=== PATIENT | male | born 1970 | race Caucasian/White ===

== ENCOUNTER → 2017-01-14 | Outpatient (REF) | payer OTHER ==
[~2017-01-14] MED LIST: /MOM400 PO; ALLO300T2 PO; ALLO50TA PO; AUGM875T27 PO; BISAC5TA PO; LIPI20TA PO; METF500T PO; METO50TA2 PO; NICO14PA EXT; OMEP10CA PO; PERC7.5T12 PO; PRIL10PO PO; TYLE325T5 PO
[2017-01-14 18:14] LABS: ALBUMIN 4.7 GM/DL (3.2-5.2); ALBUMIN/GLOBULIN RATIO 1.52 (1.00-1.93); ALKALINE PHOSPHATASE 56 U/L (45-117); ALT/SGPT 54 U/L (12-78); ANION GAP 9 MEQ/L (8-16); AST/SGOT 33 U/L (15-37); BILIRUBIN,TOTAL 0.7 MG/DL (0.2-1.0); BLOOD UREA NITROGEN 11 MG/DL (7-18); CALCIUM LEVEL 9.1 MG/DL (8.5-10.1); CARBON DIOXIDE LEVEL 29 MEQ/L (21-32); CHLORIDE LEVEL 103 MEQ/L (98-107); CHOLESTEROL LEVEL 142 MG/DL (<200); CREATININE FOR GFR 1.14 MG/DL (0.70-1.30); FREE T4 0.96 NG/DL (0.76-1.46); GLOMERULAR FILTRATION RATE > 60.0 (>60); GLUCOSE, FASTING 96 MG/DL (70-105); POTASSIUM SERUM 4.2 MEQ/L (3.5-5.1); SODIUM LEVEL 141 MEQ/L (136-145); TOTAL PROTEIN 7.8 GM/DL (6.4-8.2); TRIGLYCERIDES LEVEL 217 MG/DL (<150)
[2017-01-14 18:16] LABS: VITAMIN B12 LEVEL 423 PG/ML (247-911)
[2017-01-14 18:50] LABS: BASO # 0.1 K/mm3 (0.0-0.2); BASO % 0.6 % (0.0-1.0); EOS # 0.2 K/mm3 (0.0-0.50); EOS % 2.2 % (0.0-3.0); LARGE UNSTAINED CELL # 0.2 K/mm3 (0.0-0.4); LARGE UNSTAINED CELL % 1.5 % (0.0-4.0); LYMPH # 2.6 K/mm3 (1.5-4.5); LYMPH % 25.4 % (24.0-44.0); MEAN CORPUSCULAR HEMOGLOBIN 33.8 pg (27.0-33.0); MEAN CORPUSCULAR HGB CONC 35.3 g/dl (32.0-36.5); MEAN CORPUSCULAR VOLUME 95.8 fl (80.0-96.0); MONO # 0.4 K/mm3 (0.0-0.8); MONO % 4.4 % (0.0-5.0); NEUTROPHILS # 6.3 K/mm3 (1.8-7.7); NEUTROPHILS % 65.9 % (36.0-66.0); PLATELET COUNT, AUTOMATED 199 k/mm3 (150-450); RED CELL DISTRIBUTION WIDTH 12.5 % (11.5-14.5); WHITE BLOOD COUNT 9.5 K/mm3 (4.0-10.0)
== END ==
LOC: M SFHCPLAZ 14:37
PROVIDERS: ATTEND Physician Assistant Medical
DX: I10 Essential (primary) hypertension (principal); E78.5 Hyperlipidemia, unspecified; E11.9 Type 2 diabetes mellitus without complications; G62.9 Polyneuropathy, unspecified

== ENCOUNTER 2017-08-01 03:59 | Emergency (ER) | payer OTHER ==
[~2017-08-01] VITALS: Ht 180.3 cm; Wt 119.0 kg
[2017-08-01] MEDS ORDERED: RAMI10CA PO (04:27)
[2017-08-01] MEDS ORDERED: IPRATROPIUM 0.5MG/ALBUTEROL 2.5MG INH SOL UD 3ML (DUONEB)(J7620) NEB ONE (07:15)
--- NOTE | 2017-08-01 07:51 | REP ---
Clinical: Chest pain. Technique: PA and lateral. Comparison: 01/06/2011. Findings: Mediastinum and cardiac silhouette are normal. Lung puckett demonstrate chronic stable changes without focal consolidation, effusion, or pneumothorax. Skeletal structures are intact. Impression: Chronic stable changes. No acute cardiopulmonary process. Signed by Rishabh Sanford MD 08/01/2017 07:43 A
[2017-08-01 07:52] LABS: BASO % 0.5 % (0.0-1.0); EOS # 0.2 K/mm3 (0.0-0.50); EOS % 2.7 % (0.0-3.0); LARGE UNSTAINED CELL # 0.2 K/mm3 (0.0-0.4); LARGE UNSTAINED CELL % 1.7 % (0.0-4.0); LYMPH # 2.2 K/mm3 (1.5-4.5); LYMPH % 23.8 % (24.0-44.0); MEAN CORPUSCULAR HGB CONC 36.4 g/dl (32.0-36.5); MEAN CORPUSCULAR VOLUME 93.5 fl (80.0-96.0); MONO # 0.6 K/mm3 (0.0-0.8); MONO % 5.9 % (0.0-5.0); NEUTROPHILS # 6.2 K/mm3 (1.8-7.7); NEUTROPHILS % 65.5 % (36.0-66.0); PLATELET COUNT, AUTOMATED 167 k/mm3 (150-450); RED CELL DISTRIBUTION WIDTH 12.3 % (11.5-14.5); WHITE BLOOD COUNT 9.4 K/mm3 (4.0-10.0)
[2017-08-01 08:06] LABS: ALBUMIN/GLOBULIN RATIO 1.14 (1.00-1.93); ALKALINE PHOSPHATASE 60 U/L (45-117); ALT/SGPT 44 U/L (12-78); ANION GAP 10 MEQ/L (8-16); AST/SGOT 19 U/L (15-37); BILIRUBIN,TOTAL 0.6 MG/DL (0.2-1.0); BLOOD UREA NITROGEN 13 MG/DL (7-18); CALCIUM LEVEL 8.9 MG/DL (8.5-10.1); CARBON DIOXIDE LEVEL 25 MEQ/L (21-32); CHLORIDE LEVEL 106 MEQ/L (98-107); CREATININE FOR GFR 0.91 MG/DL (0.70-1.30); GLOMERULAR FILTRATION RATE > 60.0 (>60); GLUCOSE, FASTING 105 MG/DL (70-105); POTASSIUM SERUM 4.1 MEQ/L (3.5-5.1); SODIUM LEVEL 141 MEQ/L (136-145); TOTAL PROTEIN 7.5 GM/DL (6.4-8.2)
[2017-08-01] MEDS ORDERED: ERYT5OPO OD (08:28)
[2017-08-01] MEDS ORDERED: PRED20TA PO (08:28)
[2017-08-01] MEDS ORDERED: PROAAER10 INH (08:28)
[2017-08-01] MEDS ORDERED: ZITHTAB PO (08:28)
[2017-08-01] MEDS ORDERED: AZIT-12 PO (08:42)
[2017-08-01] MEDS ORDERED: AZITHROMYCIN 250 MG TAB PO ONE (08:45)
[2017-08-01] MEDS ORDERED: ALBUTEROL 90 MCG/ACT 8GM HFA INHALER INH ONE (08:45)
[2017-08-01 09:02] VITALS: BP 154/84
== END 2017-08-01 09:03 | disposition home or self-care (01) ==
LOC: M ED 03:59
DX: B34.9 Viral infection, unspecified (principal); J44.1 Chronic obstructive pulmonary disease with (acute) exacerbation; H10.9 Unspecified conjunctivitis; F17.210 Nicotine dependence, cigarettes, uncomplicated; I10 Essential (primary) hypertension; E78.00 Pure hypercholesterolemia, unspecified; Z79.899 Other long term (current) drug therapy

== ENCOUNTER → 2018-01-06 | Outpatient (REF) | payer OTHER ==
[2018-01-06 13:50] LABS: BASO % 0.7 % (0.0-1.0); EOS # 0.1 10^3/uL (0.0-0.50); EOS % 2.2 % (0.0-3.0); HEMATOCRIT 45.2 % (42.0-52.0); HEMOGLOBIN 16.5 g/dl (14.0-18.0); IMMATURE GRANULOCYTE % 0.5 % (0-3.0); LYMPH % 32.9 % (24.0-44.0); MEAN CORPUSCULAR HEMOGLOBIN 31.9 pg (27.0-33.0); MEAN CORPUSCULAR HGB CONC 36.5 g/dl (32.0-36.5); MEAN CORPUSCULAR VOLUME 87.3 fl (80.0-96.0); MONO # 0.4 10^3/uL (0.0-0.8); MONO % 6.7 % (0.0-5.0); NEUTROPHILS # 3.4 10^3/uL (1.8-7.7); PLATELET COUNT, AUTOMATED 193 10^3/uL (150-450); RED BLOOD COUNT 5.18 10^6/uL (4.30-6.10); RED CELL DISTRIBUTION WIDTH 11.9 % (11.5-14.5)
[2018-01-06 13:58] LABS: ALBUMIN 4.5 GM/DL (3.2-5.2); ALBUMIN/GLOBULIN RATIO 1.41 (1.00-1.93); ALKALINE PHOSPHATASE 72 U/L (45-117); ALT/SGPT 70 U/L (12-78); ANION GAP 9 MEQ/L (8-16); AST/SGOT 41 U/L (7-37); BLOOD UREA NITROGEN 14 MG/DL (7-18); CALCIUM LEVEL 9.2 MG/DL (8.5-10.1); CARBON DIOXIDE LEVEL 25 MEQ/L (21-32); CHLORIDE LEVEL 101 MEQ/L (98-107); CHOLESTEROL LEVEL 139 MG/DL (<200); CHOLESTEROL RISK RATIO 4.212 (<5); CPK CREATINE PHOSPHOKINASE 169 U/L (39-308); CREATININE FOR GFR 0.95 MG/DL (0.70-1.30); GLOMERULAR FILTRATION RATE > 60.0 (>60); GLUCOSE, FASTING 299 MG/DL (70-100); HDL CHOLESTEROL 33 MG/DL (>40); NON-HDL-C 106 MG/DL; POTASSIUM SERUM 4.2 MEQ/L (3.5-5.1); SODIUM LEVEL 135 MEQ/L (136-145); TOTAL PROTEIN 7.7 GM/DL (6.4-8.2); TRIGLYCERIDES LEVEL 225 MG/DL (<150)
[2018-01-06 14:05] LABS: VITAMIN B12 LEVEL 568 PG/ML (247-911)
[2018-01-06 14:15] LABS: ESTIMATED AVERAGE GLUCOSE 237 MG/DL (60-110); HEMOGLOBIN A1c 9.9 %
[2018-01-06 14:49] LABS: MALB URINE SIEMENS 29.4 MG/L; MAU/CREAT RATIO 10.1 MCG/MG (0.0-30.0)
== END ==
LOC: M SFHCPLAZ 11:41
DX: E11.9 Type 2 diabetes mellitus without complications (principal); E78.5 Hyperlipidemia, unspecified; I10 Essential (primary) hypertension; G62.9 Polyneuropathy, unspecified

== ENCOUNTER → 2018-02-04 | Outpatient (REF) | payer OTHER ==
[2018-02-04 13:22] LABS: ESTIMATED AVERAGE GLUCOSE 169 MG/DL (60-110); HEMOGLOBIN A1c 7.5 %
== END ==
LOC: M SFHCPLAZ 08:50
DX: E11.9 Type 2 diabetes mellitus without complications (principal)
CPT/HCPCS: 83036

== ENCOUNTER → 2018-07-07 | Outpatient (REF) | payer OTHER ==
[2018-07-07 13:54] LABS: URIC ACID 5.2 MG/DL (3.5-7.2)
[2018-07-07 14:36] LABS: ESTIMATED AVERAGE GLUCOSE 114 MG/DL (60-110); HEMOGLOBIN A1c 5.6 %
== END ==
LOC: M SFHCPLAZ 11:37
DX: M10.9 Gout, unspecified (principal); E11.9 Type 2 diabetes mellitus without complications

== ENCOUNTER → 2019-01-05 | Outpatient (REF) | payer OTHER ==
[~2019-01-05] MED LIST changes: +AZIT-12 PO; +ERYT5OPO OD; +PRED20TA PO; +PROAAER10 INH; +RAMI1CAP26 PO; +ZITHTAB PO
[2019-01-05 11:56] LABS: BASO # 0.1 10^3/uL (0.0-0.2); BASO % 0.9 % (0.0-1.0); EOS # 0.2 10^3/uL (0.0-0.50); EOS % 2.7 % (0.0-3.0); HEMATOCRIT 44.9 % (42.0-52.0); LYMPH # 2.2 10^3/uL (1.5-4.5); LYMPH % 32.2 % (24.0-44.0); MEAN CORPUSCULAR HEMOGLOBIN 32.5 pg (27.0-33.0); MEAN CORPUSCULAR HGB CONC 35.6 g/dl (32.0-36.5); MEAN CORPUSCULAR VOLUME 91.3 fl (80.0-96.0); MONO # 0.5 10^3/uL (0.0-0.8); MONO % 7.7 % (0.0-5.0); NEUTROPHILS # 3.9 10^3/uL (1.8-7.7); NEUTROPHILS % 55.6 % (36.0-66.0); PLATELET COUNT, AUTOMATED 180 10^3/uL (150-450); RED BLOOD COUNT 4.92 10^6/uL (4.30-6.10); WHITE BLOOD COUNT 6.9 10^3/uL (4.0-10.0)
[2019-01-05 12:08] LABS: HEMOGLOBIN A1c 7.7 %
[2019-01-05 12:10] LABS: ALBUMIN 4.5 GM/DL (3.2-5.2); ALT/SGPT 70 U/L (12-78); BILIRUBIN,TOTAL 0.8 MG/DL (0.2-1.0); BLOOD UREA NITROGEN 15 MG/DL (7-18); CALCIUM LEVEL 9.1 MG/DL (8.5-10.1); CARBON DIOXIDE LEVEL 25 MEQ/L (21-32); CHLORIDE LEVEL 102 MEQ/L (98-107); CHOLESTEROL LEVEL 137 MG/DL (<200); CHOLESTEROL RISK RATIO 4.419 (<5); CPK CREATINE PHOSPHOKINASE 107 U/L (39-308); CREATININE FOR GFR 0.94 MG/DL (0.70-1.30); GLOMERULAR FILTRATION RATE > 60.0 (>56); GLUCOSE, FASTING 198 MG/DL (70-100); HDL CHOLESTEROL 31 MG/DL (>40); LDL CHOLESTEROL 58 MG/DL (<100); NON-HDL-C 106 MG/DL; POTASSIUM SERUM 4.4 MEQ/L (3.5-5.1); SODIUM LEVEL 136 MEQ/L (136-145); TOTAL PROTEIN 7.5 GM/DL (6.4-8.2); TRIGLYCERIDES LEVEL 240 MG/DL (<150); URIC ACID 4.3 MG/DL (3.5-7.2)
[2019-01-05 12:13] LABS: MALB URINE SIEMENS 34.5 MG/L
== END ==
LOC: M SFHCPLAZ 08:46
PROVIDERS: ATTEND Physician Assistant Medical
DX: Z12.5 Encounter for screening for malignant neoplasm of prostate (principal); I10 Essential (primary) hypertension; E11.9 Type 2 diabetes mellitus without complications; E78.5 Hyperlipidemia, unspecified; M10.9 Gout, unspecified

== ENCOUNTER 2020-03-01 09:11 | Emergency (ER) | payer OTHER ==
[~2020-03-01] VITALS: Ht 180.3 cm; Wt 106.4 kg
[~2020-03-01 09:11] MED LIST changes: -/MOM400 PO; +ERYT1OIN26 OD; -ERYT5OPO OD; +MILK10SU PO; +NICO14DI20 EXT; -NICO14PA EXT
[2020-03-01] MEDS ORDERED: METF10004 (09:21)
[2020-03-01] MEDS ORDERED: PRAV40TA2 (09:21)
[2020-03-01] MEDS ORDERED: LISI-542 (09:21)
[2020-03-01] MEDS ORDERED: OMEP-218 (09:21)
[2020-03-01] MEDS ORDERED: AMLO5TAB6 (09:21)
[2020-03-01] MEDS ORDERED: MECLIZINE 25 MG TABLET PO ONE (10:00)
[2020-03-01 10:14] LABS: BASO % 0.5 % (0.0-1.0); EOS # 0.1 10^3/uL (0.0-0.5); EOS % 1.5 % (0.0-3.0); HEMATOCRIT 44.7 % (42.0-52.0); HEMOGLOBIN 15.8 g/dl (13.5-17.5); LYMPH # 1.6 10^3/uL (1.5-5.0); MEAN CORPUSCULAR HEMOGLOBIN 31.6 pg (27.0-33.0); MEAN CORPUSCULAR HGB CONC 35.3 g/dl (32.0-36.5); MEAN CORPUSCULAR VOLUME 89.4 fl (80.0-96.0); MONO # 0.5 10^3/uL (0.0-0.8); MONO % 5.7 % (0.0-5.0); NEUTROPHILS # 6.1 10^3/uL (1.5-8.5); NEUTROPHILS % 72.6 % (36.0-66.0); PLATELET COUNT, AUTOMATED 193 10^3/uL (150-450); WHITE BLOOD COUNT 8.4 10^3/uL (4.0-10.0)
[2020-03-01 10:41] LABS: BLOOD UREA NITROGEN 11 MG/DL (7-18); CALCIUM LEVEL 9.4 MG/DL (8.5-10.1); CARBON DIOXIDE LEVEL 28 MEQ/L (21-32); CHLORIDE LEVEL 101 MEQ/L (98-107); CK-MB VALUE MASS 2.4 NG/ML (<3.6); CPK CREATINE PHOSPHOKINASE 64 U/L (39-308); CREATININE FOR GFR 0.85 MG/DL (0.70-1.30); GLOMERULAR FILTRATION RATE > 60.0 (>56); GLUCOSE, FASTING 334 MG/DL (70-100); MB/CK RELATIVE INDEX 3.75 (< OR =4); SODIUM LEVEL 136 MEQ/L (136-145); THYROID STIMULATING HORMONE 0.855 uIU/ML (0.358-3.740); TROPONIN I < 0.02 NG/ML (< 0.10)
[2020-03-01] MEDS ORDERED: MECL-86 PO (10:52)
--- NOTE | 2020-03-01 10:52 | REP ---
CT BRAIN WITHOUT CONTRAST: HISTORY: Dizziness. Comparison is made with images from maxillofacial CT study dated December 17, 2013. FINDINGS: Preliminary digital channeler insole radiograph is unremarkable. On bone window settings, the bony calvarium is intact. There is a linear area of fibrosis in the left frontal scalp. On soft tissue window settings, the lateral, third, and fourth ventricles are normal in size and position. Mccauley-white differentiation pattern is normal above below the tentorium. There is no evidence of intracranial hemorrhage. No mass, infarct, extra-axial fluid collection, or midline shift is seen. IMPRESSION: Negative noncontrast brain CT. Electronically Signed by Olegario Samano MD 03/01/2020 11:42 A
[2020-03-01 11:15] VITALS: BP 157/90
--- NOTE | 2020-03-02 12:24 | ECGEPIP ---
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
== END 2020-03-01 11:34 | disposition home or self-care (01) ==
LOC: M ED 09:11
DX: H81.10 Benign paroxysmal vertigo, unspecified ear (principal); E11.9 Type 2 diabetes mellitus without complications; I10 Essential (primary) hypertension; E78.5 Hyperlipidemia, unspecified; M10.9 Gout, unspecified; Z79.899 Other long term (current) drug therapy; Z79.84 Long term (current) use of oral hypoglycemic drugs; F17.210 Nicotine dependence, cigarettes, uncomplicated

== ENCOUNTER → 2020-09-10 | Outpatient (REF) | payer OTHER ==
[~2020-09-10] MED LIST changes: +AMLO1TAB24; -ERYT1OIN26 OD; +ERYT5OIN25 OD; +LISI-542; +MECL-86 PO; +METF10004; +OMEP-218; +PRAV40TA2
[2020-09-10 10:46] LABS: BASO # 0.1 10^3/uL (0.0-0.2); EOS # 0.1 10^3/uL (0.0-0.5); EOS % 1.3 % (0.0-3.0); HEMATOCRIT 48.8 % (42.0-52.0); HEMOGLOBIN 16.9 g/dl (13.5-17.5); LYMPH # 2.4 10^3/uL (1.5-5.0); LYMPH % 28.8 % (24.0-44.0); MEAN CORPUSCULAR HEMOGLOBIN 31.4 pg (27.0-33.0); MEAN CORPUSCULAR HGB CONC 34.6 g/dl (32.0-36.5); MEAN CORPUSCULAR VOLUME 90.5 fl (80.0-96.0); MONO # 0.5 10^3/uL (0.0-0.8); MONO % 5.7 % (0.0-5.0); NEUTROPHILS # 5.2 10^3/uL (1.5-8.5); NEUTROPHILS % 62.4 % (36.0-66.0); PLATELET COUNT, AUTOMATED 222 10^3/uL (150-450); RED BLOOD COUNT 5.39 10^6/uL (4.30-6.10); WHITE BLOOD COUNT 8.3 10^3/uL (4.0-10.0)
[2020-09-10 11:20] LABS: ALBUMIN 4.3 GM/DL (3.2-5.2); ALT/SGPT 38 U/L (12-78); BILIRUBIN,TOTAL 0.6 MG/DL (0.2-1.0); BLOOD UREA NITROGEN 13 MG/DL (7-18); CALCIUM LEVEL 9.5 MG/DL (8.5-10.1); CARBON DIOXIDE LEVEL 30 MEQ/L (21-32); CHLORIDE LEVEL 101 MEQ/L (98-107); CHOLESTEROL LEVEL 142 MG/DL (<200); CHOLESTEROL RISK RATIO 4.303 (<5); CPK CREATINE PHOSPHOKINASE 45 U/L (39-308); GLOMERULAR FILTRATION RATE > 60.0 (>56); GLUCOSE, FASTING 252 MG/DL (70-100); HDL CHOLESTEROL 33 MG/DL (>40); LDL CHOLESTEROL 50 MG/DL (<100); NON-HDL-C 109 MG/DL; POTASSIUM SERUM 4.6 MEQ/L (3.5-5.1); SODIUM LEVEL 137 MEQ/L (136-145); TOTAL PROTEIN 7.8 GM/DL (6.4-8.2); TRIGLYCERIDES LEVEL 296 MG/DL (<150)
[2020-09-10 11:43] LABS: HEMOGLOBIN A1c 9.1 %
== END ==
LOC: M SFHCPLAZ 08:21
PROVIDERS: ATTEND Physician Assistant Medical
DX: I10 Essential (primary) hypertension (principal); E78.5 Hyperlipidemia, unspecified; E11.9 Type 2 diabetes mellitus without complications; Z12.5 Encounter for screening for malignant neoplasm of prostate

== ENCOUNTER → 2021-01-11 | Outpatient (REF) | payer OTHER ==
[~2021-01-11] MED LIST changes: -LISI-542; +LISI-898
[2021-01-11 10:13] LABS: BASO # 0.1 10^3/uL (0.0-0.2); BASO % 0.7 % (0.0-1.0); EOS # 0.1 10^3/uL (0.0-0.5); EOS % 1.3 % (0.0-3.0); HEMATOCRIT 44.4 % (42.0-52.0); HEMOGLOBIN 15.8 g/dl (13.5-17.5); LYMPH # 2.2 10^3/uL (1.5-5.0); LYMPH % 29.3 % (24.0-44.0); MEAN CORPUSCULAR HEMOGLOBIN 31.7 pg (27.0-33.0); MEAN CORPUSCULAR HGB CONC 35.6 g/dl (32.0-36.5); MONO # 0.4 10^3/uL (0.0-0.8); MONO % 5.8 % (2.0-8.0); NEUTROPHILS # 4.8 10^3/uL (1.5-8.5); NEUTROPHILS % 62.1 % (36.0-66.0); PLATELET COUNT, AUTOMATED 187 10^3/uL (150-450); RED BLOOD COUNT 4.99 10^6/uL (4.30-6.10); WHITE BLOOD COUNT 7.7 10^3/uL (4.0-10.0)
[2021-01-11 10:49] LABS: ALBUMIN 4.3 GM/DL (3.2-5.2); ALT/SGPT 34 U/L (12-78); BILIRUBIN,TOTAL 0.7 MG/DL (0.2-1.0); BLOOD UREA NITROGEN 10 MG/DL (7-18); CALCIUM LEVEL 9.6 MG/DL (8.5-10.1); CARBON DIOXIDE LEVEL 28 MEQ/L (21-32); CHLORIDE LEVEL 100 MEQ/L (98-107); CHOLESTEROL LEVEL 158 MG/DL (<200); CHOLESTEROL RISK RATIO 4.937 (<5); CREATININE FOR GFR 0.97 MG/DL (0.70-1.30); FREE T4 1.07 NG/DL (0.76-1.46); GLOMERULAR FILTRATION RATE > 60.0 (>56); GLUCOSE, FASTING 268 MG/DL (70-100); HDL CHOLESTEROL 32 MG/DL (>40); LDL CHOLESTEROL 69 MG/DL (<100); NON-HDL-C 126 MG/DL; POTASSIUM SERUM 4.9 MEQ/L (3.5-5.1); SODIUM LEVEL 136 MEQ/L (136-145); TOTAL PROTEIN 7.6 GM/DL (6.4-8.2); TRIGLYCERIDES LEVEL 285 MG/DL (<150)
[2021-01-11 10:50] LABS: LUTEINIZING HORMONE 4.2 mIU/mL (1.5-9.3); PROLACTIN 2.8 NG/ML (2.1-17.7)
[2021-01-11 10:51] LABS: FOLLICLE STIMULATING HORMONE 5.4 mIU/mL (1.4-18.1)
[2021-01-11 10:56] LABS: MALB URINE SIEMENS 10.1 MG/L; MAU/CREAT RATIO 5.8 MCG/MG (0.0-30.0)
[2021-01-11 11:20] LABS: HEMOGLOBIN A1c 10.1 %
[2021-01-12 19:16] LABS: TESTOSTERONE FREE (DIRECT) 9.6 pg/mL (7.2-24.0)
== END ==
LOC: M SFHCPLAZ 08:22
PROVIDERS: ATTEND Physician Assistant Medical
DX: E11.9 Type 2 diabetes mellitus without complications (principal); E78.5 Hyperlipidemia, unspecified; I10 Essential (primary) hypertension; N52.9 Male erectile dysfunction, unspecified

== ENCOUNTER → 2021-06-04 | Outpatient (CLI) | payer OTHER ==
[~2021-06-04] MED LIST changes: -LISI-898; +LISI5TAB11; +OMEP-173; -OMEP-218
[2021-06-04 15:36] LABS: BASO # 0.1 10^3/uL (0.0-0.2); BASO % 0.9 % (0.0-1.0); EOS # 0.2 10^3/uL (0.0-0.5); EOS % 2.4 % (0.0-3.0); HEMATOCRIT 46.5 % (42.0-52.0); HEMOGLOBIN 16.5 g/dl (13.5-17.5); LYMPH # 3.2 10^3/uL (1.5-5.0); LYMPH % 33.2 % (24.0-44.0); MEAN CORPUSCULAR HGB CONC 35.5 g/dl (32.0-36.5); MEAN CORPUSCULAR VOLUME 90.3 fl (80.0-96.0); MONO # 0.6 10^3/uL (0.0-0.8); MONO % 6.6 % (2.0-8.0); NEUTROPHILS # 5.5 10^3/uL (1.5-8.5); NEUTROPHILS % 56.1 % (36.0-66.0); PLATELET COUNT, AUTOMATED 214 10^3/uL (150-450); RED BLOOD COUNT 5.15 10^6/uL (4.30-6.10); WHITE BLOOD COUNT 9.7 10^3/uL (4.0-10.0)
[2021-06-04 16:05] LABS: ALBUMIN 4.4 GM/DL (3.2-5.2); ALT/SGPT 36 U/L (12-78); BILIRUBIN,TOTAL 0.7 MG/DL (0.2-1.0); BLOOD UREA NITROGEN 13 MG/DL (7-18); CALCIUM LEVEL 9.3 MG/DL (8.5-10.1); CARBON DIOXIDE LEVEL 25 MEQ/L (21-32); CHLORIDE LEVEL 105 MEQ/L (98-107); CHOLESTEROL LEVEL 146 MG/DL (<200); CHOLESTEROL RISK RATIO 4.294 (<5); CREATININE FOR GFR 0.87 MG/DL (0.70-1.30); FREE T4 0.95 NG/DL (0.76-1.46); GLOMERULAR FILTRATION RATE > 60.0 (>56); GLUCOSE, FASTING 122 MG/DL (70-100); HDL CHOLESTEROL 34 MG/DL (>40); LDL CHOLESTEROL 52 MG/DL (<100); NON-HDL-C 112 MG/DL; POTASSIUM SERUM 4.4 MEQ/L (3.5-5.1); SODIUM LEVEL 137 MEQ/L (136-145); TOTAL PROTEIN 7.8 GM/DL (6.4-8.2); TRIGLYCERIDES LEVEL 302 MG/DL (<150)
[2021-06-04 17:21] LABS: HEMOGLOBIN A1c 6.1 %
[2021-06-06 20:34] LABS: TESTOSTERONE FREE (DIRECT) 14.7 pg/mL (7.2-24.0)
== END ==
LOC: M PLALAB 12:37
PROVIDERS: ATTEND Physician Assistant Medical
DX: N52.9 Male erectile dysfunction, unspecified (principal); E78.5 Hyperlipidemia, unspecified; E11.9 Type 2 diabetes mellitus without complications; I10 Essential (primary) hypertension

== ENCOUNTER → 2023-02-02 | Outpatient (CLI) | payer BC ==
[2023-02-02 14:10] LABS: HEMOGLOBIN A1c 6.7 % (4.0-6.0)
[2023-02-02 14:12] LABS: URIC ACID 4.4 MG/DL (3.7-9.2)
[2023-02-02 14:15] LABS: ALBUMIN 4.5 G/DL (3.2-5.2); ALKALINE PHOSPHATASE 54 U/L (46-116); ALT/SGPT 26 U/L (7.0-40); AST/SGOT 16 U/L (<34); BILIRUBIN,TOTAL 0.6 MG/DL (0.3-1.2); BLOOD UREA NITROGEN 14 MG/DL (9-23); CALCIUM LEVEL 9.7 MG/DL (8.5-10.1); CARBON DIOXIDE LEVEL 28 MMOL/L (20-31); CHLORIDE LEVEL 104 MMOL/L (98-107); CHOLESTEROL LEVEL 143 MG/DL (<200); CHOLESTEROL RISK RATIO 4.18 (<5); CREATININE FOR GFR 0.75 MG/DL (0.70-1.30); GLOMERULAR FILTRATION RATE > 60.0 (>56); GLUCOSE, FASTING 174 MG/DL (60-100); HDL CHOLESTEROL 34.2 MG/DL (>40); LDL CHOLESTEROL 44.8 MG/DL (<100); NON-HDL-C 108.8 MG/DL; POTASSIUM SERUM 4.9 MMOL/L (3.5-5.1); SODIUM LEVEL 140 MMOL/L (136-145); TOTAL PROTEIN 7.5 G/DL (5.7-8.2); TRIGLYCERIDES LEVEL 320 MG/DL (<150)
[2023-02-02 14:27] LABS: BASO # 0.1 10^3/uL (0.0-0.2); BASO % 0.8 % (0.0-1.0); EOS # 0.2 10^3/uL (0.0-0.5); EOS % 2.1 % (0.0-3.0); HEMATOCRIT 47.9 % (42.0-52.0); HEMOGLOBIN 16.5 g/dl (13.5-17.5); LYMPH # 2.6 10^3/uL (1.5-5.0); LYMPH % 28.7 % (24.0-44.0); MEAN CORPUSCULAR HEMOGLOBIN 32.4 pg (27.0-33.0); MEAN CORPUSCULAR HGB CONC 34.4 g/dl (32.0-36.5); MEAN CORPUSCULAR VOLUME 94.1 fl (80.0-96.0); MONO # 0.6 10^3/uL (0.0-0.8); MONO % 6.2 % (2.0-8.0); NEUTROPHILS # 5.5 10^3/uL (1.5-8.5); NEUTROPHILS % 61.6 % (36.0-66.0); PLATELET COUNT, AUTOMATED 229 10^3/uL (150-450); RED BLOOD COUNT 5.09 10^6/uL (4.30-6.10); WHITE BLOOD COUNT 8.9 10^3/uL (4.0-10.0)
== END ==
LOC: M PLALAB 09:51
PROVIDERS: ATTEND Physician Assistant Medical
DX: M10.9 Gout, unspecified (principal)

== ENCOUNTER → 2023-08-13 | Outpatient (CLI) | payer BC ==
[2023-08-13 15:56] LABS: BASO # 0.1 10^3/uL (0.0-0.2); BASO % 0.6 % (0.0-1.0); EOS # 0.2 10^3/uL (0.0-0.5); EOS % 1.7 % (0.0-3.0); HEMOGLOBIN 14.6 g/dl (13.5-17.5); LYMPH # 2.5 10^3/uL (1.5-5.0); LYMPH % 23.9 % (24.0-44.0); MEAN CORPUSCULAR HGB CONC 35.6 g/dl (32.0-36.5); MEAN CORPUSCULAR VOLUME 89.9 fl (80.0-96.0); MONO # 0.7 10^3/uL (0.0-0.8); MONO % 6.3 % (2.0-8.0); NEUTROPHILS # 7.1 10^3/uL (1.5-8.5); PLATELET COUNT, AUTOMATED 234 10^3/uL (150-450); RED BLOOD COUNT 4.56 10^6/uL (4.30-6.10); WHITE BLOOD COUNT 10.6 10^3/uL (4.0-10.0)
[2023-08-13 16:20] LABS: CREATININE, URINE > 735.0 MG/DL
[2023-08-13 16:21] LABS: ALBUMIN 4.4 G/DL (3.2-5.2); ALKALINE PHOSPHATASE 54 U/L (46-116); ALT/SGPT 35 U/L (7.0-40); AST/SGOT 28 U/L (<34); BILIRUBIN,TOTAL 0.8 MG/DL (0.3-1.2); BLOOD UREA NITROGEN 12 MG/DL (9-23); CALCIUM LEVEL 9.5 MG/DL (8.5-10.1); CARBON DIOXIDE LEVEL 28 MMOL/L (20-31); CHLORIDE LEVEL 103 MMOL/L (98-107); CREATININE FOR GFR 1.05 MG/DL (0.70-1.30); GLOMERULAR FILTRATION RATE > 60.0 (>56); GLUCOSE, FASTING 134 MG/DL (60-100); POTASSIUM SERUM 4.6 MMOL/L (3.5-5.1); SODIUM LEVEL 139 MMOL/L (136-145); TOTAL PROTEIN 7.2 G/DL (5.7-8.2)
[2023-08-13 17:28] LABS: HEMOGLOBIN A1c 8.1 % (4.0-6.0)
== END ==
LOC: M PLALAB 13:33
PROVIDERS: ATTEND Physician Assistant Medical
DX: K21.9 Gastro-esophageal reflux disease without esophagitis (principal); I10 Essential (primary) hypertension; E78.5 Hyperlipidemia, unspecified; M10.9 Gout, unspecified; E11.9 Type 2 diabetes mellitus without complications

== ENCOUNTER → 2024-02-17 | Outpatient (CLI) | payer SELFPAY ==
[2024-02-17 11:11] LABS: BASO # 0.1 10^3/uL (0.0-0.2); BASO % 0.8 % (0.0-1.0); EOS # 0.2 10^3/uL (0.0-0.5); EOS % 2.5 % (0.0-3.0); HEMATOCRIT 40.8 % (42.0-52.0); HEMOGLOBIN 14.6 g/dl (13.5-17.5); LYMPH # 2.2 10^3/uL (1.5-5.0); LYMPH % 27.6 % (24.0-44.0); MEAN CORPUSCULAR HEMOGLOBIN 32.4 pg (27.0-33.0); MEAN CORPUSCULAR HGB CONC 35.8 g/dl (32.0-36.5); MEAN CORPUSCULAR VOLUME 90.7 fl (80.0-96.0); MONO # 0.5 10^3/uL (0.0-0.8); NEUTROPHILS % 62.6 % (36.0-66.0); PLATELET COUNT, AUTOMATED 192 10^3/uL (150-450); WHITE BLOOD COUNT 7.9 10^3/uL (4.0-10.0)
[2024-02-17 11:12] LABS: URIC ACID 5.2 MG/DL (3.7-9.2)
[2024-02-17 11:13] LABS: PSA SCREENING 1.28 NG/ML (< 4.00)
[2024-02-17 11:15] LABS: ALBUMIN 4.3 G/DL (3.2-5.2); ALKALINE PHOSPHATASE 50 U/L (46-116); ALT/SGPT 21 U/L (7.0-40); AST/SGOT 16 U/L (<34); BILIRUBIN,TOTAL 0.6 MG/DL (0.3-1.2); BLOOD UREA NITROGEN 12 MG/DL (9-23); CALCIUM LEVEL 9.6 MG/DL (8.5-10.1); CARBON DIOXIDE LEVEL 27 MMOL/L (20-31); CHLORIDE LEVEL 109 MMOL/L (98-107); CHOLESTEROL LEVEL 106 MG/DL (<200); CHOLESTEROL RISK RATIO 3.69 (<5); CPK CREATINE PHOSPHOKINASE 90 U/L (46-171); GLOMERULAR FILTRATION RATE > 60.0 (>56); GLUCOSE, FASTING 117 MG/DL (60-100); HDL CHOLESTEROL 28.7 MG/DL (>40); LDL CHOLESTEROL 58.1 MG/DL (<100); NON-HDL-C 77.3 MG/DL; POTASSIUM SERUM 4.6 MMOL/L (3.5-5.1); SODIUM LEVEL 141 MMOL/L (136-145); TRIGLYCERIDES LEVEL 96 MG/DL (<150)
[2024-02-17 11:17] LABS: FREE T4 1.14 NG/DL (0.89-1.76); THYROID STIMULATING HORMONE 1.936 uIU/ML (0.55-4.78)
[2024-02-17 11:31] LABS: CREATININE, URINE 90.8 MG/DL
[2024-02-17 11:44] LABS: HEMOGLOBIN A1c 6.2 % (4.0-6.0)
[2024-02-18 11:08] LABS: TESTOSTERONE FREE (DIRECT) 6.6 pg/mL (7.2-24.0)
== END ==
LOC: M PLALAB 08:09
PROVIDERS: ATTEND Physician Assistant Medical
DX: E11.9 Type 2 diabetes mellitus without complications (principal); E78.5 Hyperlipidemia, unspecified; I10 Essential (primary) hypertension; M10.9 Gout, unspecified; Z12.5 Encounter for screening for malignant neoplasm of prostate; N52.9 Male erectile dysfunction, unspecified
CPT/HCPCS: 36415; 80053; 80061; 82043; 82550; 83036; 84402; 84403; 84439; 84443; 84550; 85025; G0103

== ENCOUNTER 2024-04-30 10:15 | Emergency (ER) | payer SELFPAY ==
[~2024-04-30] VITALS: Ht 180.3 cm; Wt 107.7 kg
[~2024-04-30 10:15] MED LIST changes: +RAMI10CA64 PO; -RAMI1CAP26 PO
[2024-04-30 12:13] LABS: BASO # 0.1 10^3/uL (0.0-0.2); BASO % 0.7 % (0.0-1.0); EOS # 0.2 10^3/uL (0.0-0.5); EOS % 2.6 % (0.0-3.0); HEMATOCRIT 40.6 % (42.0-52.0); HEMOGLOBIN 14.7 g/dl (13.5-17.5); LYMPH # 1.5 10^3/uL (1.5-5.0); LYMPH % 20.7 % (24.0-44.0); MEAN CORPUSCULAR HEMOGLOBIN 32.4 pg (27.0-33.0); MEAN CORPUSCULAR HGB CONC 36.2 g/dl (32.0-36.5); MEAN CORPUSCULAR VOLUME 89.4 fl (80.0-96.0); MONO # 0.5 10^3/uL (0.0-0.8); MONO % 6.7 % (2.0-8.0); NEUTROPHILS % 68.8 % (36.0-66.0); PLATELET COUNT, AUTOMATED 162 10^3/uL (150-450); RED BLOOD COUNT 4.54 10^6/uL (4.30-6.10); WHITE BLOOD COUNT 7.3 10^3/uL (4.0-10.0)
[2024-04-30 12:24] LABS: BLOOD UREA NITROGEN 16 MG/DL (9-23); CARBON DIOXIDE LEVEL 24 MMOL/L (20-31); CHLORIDE LEVEL 107 MMOL/L (98-107); CHOLESTEROL LEVEL 160 MG/DL (<200); CHOLESTEROL RISK RATIO 5.73 (<5); CREATININE FOR GFR 0.71 MG/DL (0.70-1.30); GLOMERULAR FILTRATION RATE > 60.0 (>56); GLUCOSE, FASTING 184 MG/DL (60-100); HDL CHOLESTEROL 27.9 MG/DL (>40); LDL CHOLESTEROL 58.1 MG/DL (<100); NON-HDL-C 132.1 MG/DL; SODIUM LEVEL 139 MMOL/L (136-145); TRIGLYCERIDES LEVEL 370 MG/DL (<150)
[2024-04-30 12:26] LABS: CPK CREATINE PHOSPHOKINASE 129 U/L (46-171); MB/CK RELATIVE INDEX 1.55 (< OR =4)
[2024-04-30] MEDS ORDERED: ISOVUE-370 76% 100ML VIAL As Ordered ONE (12:32)
[2024-04-30 13:25] LABS: LIPASE 29 U/L (12-53)
[2024-04-30 13:29] LABS: CPK CREATINE PHOSPHOKINASE 117 U/L (46-171)
[2024-04-30 14:16] LABS: INR 1.04; PARTIAL THROMBOPLASTIN TIME 26.8 SECONDS (24.8-34.2); PROTHROMBIN TIME 13.3 SECONDS (12.5-14.5)
[2024-04-30 15:00] VITALS: BP 150/83
[2024-04-30] MEDS: PANTOPRAZOLE 40MG VIAL IV ONE (15:02)
[2024-04-30 15:11] LABS: MB/CK RELATIVE INDEX 1.85 (< OR =4)
[2024-04-30] MEDS ORDERED: OMEP40CA4 PO (15:16)
[2024-04-30 15:30] VITALS: O2SAT 97
[2024-04-30 16:07] VITALS: TEMP 98.7
== END 2024-04-30 16:09 | disposition home or self-care (01) ==
LOC: M ED 10:15
DX: R07.9 Chest pain, unspecified (principal); E11.9 Type 2 diabetes mellitus without complications; I10 Essential (primary) hypertension; K21.9 Gastro-esophageal reflux disease without esophagitis; F17.210 Nicotine dependence, cigarettes, uncomplicated; Z79.1 Long term (current) use of non-steroidal anti-inflammatories (NSAID); Z79.51 Long term (current) use of inhaled steroids; Z79.84 Long term (current) use of oral hypoglycemic drugs; Z79.899 Other long term (current) drug therapy
CPT/HCPCS: 71045; 71275; 74177; 80048; 80061; 82550; 82553; 83690; 84484; 85025; 85610; 85730; 93005; 93041; 94760; 96374; 99285; C9113; Q9967

== ENCOUNTER → 2024-05-03 | Outpatient (CLI) | payer SELFPAY ==
[~2024-05-03] MED LIST changes: +OMEP40CA4 PO
== END ==
LOC: M PLAIMG 09:57
PROVIDERS: ATTEND Physician Assistant Medical
DX: M25.511 Pain in right shoulder (principal); M75.31 Calcific tendinitis of right shoulder; M19.011 Primary osteoarthritis, right shoulder; M50.31 Other cervical disc degeneration, high cervical region; M50.321 Other cervical disc degeneration at C4-C5 level; M50.322 Other cervical disc degeneration at C5-C6 level; M50.323 Other cervical disc degeneration at C6-C7 level

== ENCOUNTER → 2025-07-03 | Outpatient (CLI) | payer SELFPAY ==
[~2025-07-03] MED LIST changes: -PRAV40TA2; +PRAV40TA85
[2025-07-03 11:14] LABS: ALT/SGPT 14 U/L (7.0-40); AST/SGOT 12 U/L (<34); CALCIUM LEVEL 9.7 MG/DL (8.5-10.1); CARBON DIOXIDE LEVEL 28 MMOL/L (20-31); CHLORIDE LEVEL 108 MMOL/L (98-107); CREATININE FOR GFR 0.84 MG/DL (0.70-1.30); GLOMERULAR FILTRATION RATE > 90.0 (>56); POTASSIUM SERUM 5.2 MMOL/L (3.5-5.1); SODIUM LEVEL 143 MMOL/L (136-145)
[2025-07-03 11:21] LABS: ESTIMATED AVERAGE GLUCOSE 137.0 MG/DL (60-110)
== END ==
LOC: M PLALAB 08:28
PROVIDERS: ATTEND Physician Assistant Medical
DX: E11.65 Type 2 diabetes mellitus with hyperglycemia (principal); E78.5 Hyperlipidemia, unspecified; I10 Essential (primary) hypertension